=== PATIENT | male | born 2000 | race Two or more races ===

== ENCOUNTER 2018-07-01 19:04 | Emergency (ER) | payer OTHER ==
[~2018-07-01] VITALS: Ht 180.3 cm; Wt 68.0 kg
== END 2018-07-02 00:34 | disposition home or self-care (01) ==
LOC: ER 19:04
DX: S80.01XA Contusion of right knee, initial encounter (principal); W18.39XA Other fall on same level, initial encounter; Y93.89 Activity, other specified; Y92.89 Other specified places as the place of occurrence of the external cause; Y99.8 Other external cause status